=== PATIENT | female | born 1945 | race Caucasian/White ===

== ENCOUNTER 2016-09-28 12:35 | Inpatient (IN) | payer MEDICARE, BC ==
[~2016-09-28 12:35] MED LIST: ALEVE220 M2 PO; ASPIRIN81 MG PO; BISMUTH SU PO; BISOPROLOL FUMAR5 MG PO; CELEXA10 MG PO; CELEXA20 M1 PO; CITALOPRAM; COMPAZINE10 M PO; CRANBERRY250 M1 PO; DONEPEZIL HCL10 MG PO; DONEPEZIL HCL5 MG; GLUCOPHAGE500 M1 PO; GLUCOPHAGE500 MG; HUMULIN N100 U/ML; IBUPROFEN; IMODIUM A-D2 MG PO; LANTUS100 U/ML SC; LEVOTHYROXINE; LEVOTHYROXINE125 MCG; LEVOTHYROXINE125 MCG PO; NOVOLIN R 100 UNIT SC; NOVOLOG100 U/M SC; NOVOLOG100 U/M SQ; PRILOSEC20 MG PO; PYRIDIUM200 M1 PO; SIMVASTATIN10 MG PO; SINEMET 25-1001 TA1 PO; TYLENOL TA500 MG/TA1 PO; VITAMIN D 22000 UNIT PO; ZESTRIL2.5 M1 PO; [UNRECOGNIZED DRUG - OTHER]
[2016-09-28] MEDS ORDERED: SYNTHROID100 MC1 PO (13:38)
[2016-09-28] MEDS ORDERED: ZEBETA5 M2 PO (13:38)
[2016-09-28] MEDS ORDERED: PRINIVIL10 M1 PO (13:39)
[2016-09-28] MEDS ORDERED: ARICEPT10 M2 PO (13:39)
[2016-09-28] MEDS ORDERED: LANTUS SOL100 UNIT/1 SC (13:49)
[2016-09-28 13:56] LABS: URINE BILIRUBIN NEGATIVE (NEG); URINE BLOOD MODERATE (NEG); URINE COLOR YELLOW; URINE GLUCOSE (UA) NEGATIVE (NEG); URINE KETONE LARGE (NEG); URINE LEUKOCYTE ESTERASE POSITIVE (NEG); URINE NITRITE POSITIVE (NEG); URINE PROTEIN MODERATE (NEG); URINE SPECIFIC GRAVITY 1.025 (1.003-1.030)
[2016-09-28 13:57] LABS: URINE APPEARANCE HAZY
[2016-09-28 14:02] LABS: KETONE-BETA (WHOLE BLOOD) 2.3 mmol/L (0.0-0.6)
[2016-09-28 14:03] LABS: BASO % 0.5 % (0-2); EOS % 0.9 % (0-7); EOSINOPHIL ABSOLUTE COUNT 0.1 tho/cmm (0.0-0.7); HCT-HEMATOCRIT 42.8 % (34.0-49.0); IMMATURE GRANULOCYTES ABSOLUTE 0.03 tho/cmm (0-0.03); IMMATURE GRANULOCYTES PERCENT 0.4 % (0-0.3); LYMPH % 19.8 % (20-45); LYMPH ABSOLUTE COUNT 1.7 tho/cmm (0.8-4.5); MCH (MEAN CORPUSCULAR HGB) 27.1 pg (28.0-32.0); MCHC MEAN CORPUSCULAR HGB CONC 32.7 % (32.0-36.0); MCV (MEAN CELL VOLUME) 82.9 fl (82.0-96.0); MEAN PLATELET VOLUME 12.5 cmc (9.4-12.4); MONO % 5.3 % (0-12); MONOCYTE ABSOLUTE COUNT 0.5 tho/cmm (0.0-1.2); NEUTROPHIL ABSOLUTE COUNT 6.2 tho/cmm (1.6-8.0); NEUTROPHIL-AUTOMATED 6.2 tho/cmm (1.6-8.0); NEUTROPHILS % 73.1 % (40-80); PLATELET COUNT 162 tho/cmm (150-450); RED BLOOD COUNT 5.16 mil/cmm (4.00-5.20); WHITE BLOOD COUNT 8.5 tho/cmm (4.0-10.0)
[2016-09-28] MEDS ORDERED: OMEPRAZOLE20 M3 PO (14:09)
[2016-09-28] MEDS ORDERED: NOVOLOG FL100 UNIT/2 SC (14:09)
[2016-09-28] MEDS ORDERED: CELEXA20 M2 PO (14:10)
[2016-09-28] MEDS ORDERED: ASPIRIN EC81 MG PO (14:10)
[2016-09-28 14:11] LABS: URINE RBC 0-2 /[HPF] (0-5); URINE WBC 0-2 /[HPF] (0-5)
[2016-09-28] MEDS ORDERED: SINEMET 25-1001 EAC1 PO (14:11)
[2016-09-28 14:12] LABS: URINE MUCUS 1+
[2016-09-28 14:17] LABS: ALB/GLOB RATIO 0.8 (0.8-2.0); ALBUMIN 3.5 g/dl (3.5-5.0); ALKALINE PHOSPHATASE 85 U/L (33-138); ANION GAP 15 mmol/L (0-20); AST/SGOT 17 U/L (10-40); BILIRUBIN,TOTAL 0.8 mg/dl (0-1.5); BLOOD UREA NITROGEN 12 mg/dl (6-24); CALCIUM 8.6 mg/dl (8.5-10.5); CARBON DIOXIDE-VENOUS 26 mmol/L (22-32); CHLORIDE 97 mmol/l (96-110); CREATININE 0.95 mg/dl (0.50-1.10); GLUCOSE 199 mg/dL (70-110); LIPASE 68 U/L (73-393); POTASSIUM 4.3 mmol/L (3.7-5.1); SODIUM 134 mmol/L (135-145); eGFR VALUE FOR BLACK 69 mL/Min
[2016-09-28 14:21] LABS: ALT/SGPT <10 U/L (12-78); C-REACTIVE PROTEIN <0.3 mg/dl (0-0.9)
[2016-09-28 17:35] LABS: ABG CO2 ARTERIAL 24 mmol/L (21-27); ARTERIAL BLD GAS O2 SATURATION 97 % (95-98); ARTERIAL BLOOD GAS PCO2 36 mmHg (32-45); ARTERIAL PO2 93 mmHg (70-100); BICARBONATE 22 mmol/L (21-28); BLOOD GAS BASE EXCESS -1 mM/L (-/+3); PH 7.41 Units (7.35-7.45)
[2016-09-28 18:28] LABS: MAGNESIUM 1.8 mg/dl (1.3-2.6); PHOSPHOROUS 3.1 mg/dl (2.5-4.9)
[2016-09-28 18:30] LABS: TSH-THYROID STIMULATING HORM. 0.02 uIU/ml (0.40-3.80)
--- NOTE | 2016-09-28 21:18 | NUR ---
VN ROUNDING AND COMPLETED THE ADMISSION ASSESSMENT-SPOUSE KLAUDIA IN ROOM AND HELPED TO ANSWER THE QUESTIONS. PATIENT SON IS A MEDICAL ONCOLOGY PHYSICIAN AND THEY REQUESTED THAT A MEDICAL ONCOLOGY PHYSICIAN SEE THEM TOMORROW SO I CALLED THE [employer] AND THEY WILL PUT ON THE MEDICAL ONCOLOGY PHYSICIAN LIST TO SEE TOMORROW.
[2016-09-29 10:27] LABS: CALCIUM 8.3 mg/dl (8.5-10.5)
[2016-09-30 05:56] LABS: ANION GAP 11 mmol/L (0-20); BLOOD UREA NITROGEN 5 mg/dl (6-24); CALCIUM 7.7 mg/dl (8.5-10.5); CARBON DIOXIDE-VENOUS 27 mmol/L (22-32); CHLORIDE 104 mmol/l (96-110); CREATININE 0.78 mg/dl (0.50-1.10); GLUCOSE 106 mg/dL (70-110); SODIUM 138 mmol/L (135-145); eGFR VALUE FOR BLACK 88 mL/Min
[2016-10-01] MEDS ORDERED: TYLENOL EXTRA500 M1 PO (15:18)
[2016-10-01] MEDS ORDERED: ZOFRAN ODT4 MG PO (15:20)
[2016-10-01] MEDS ORDERED: NOVOLOG FL100 UNIT/2 SC (15:23)
[2016-10-01] MEDS ORDERED: NOVOLOG100 UNITS/ SC (15:27)
[2016-10-01] MEDS ORDERED: GLUCAGON HCL1 MG IM (15:29)
[2016-12-16] MEDS ORDERED: ARICEPT10 M2 PO (11:58)
[2016-12-16] MEDS ORDERED: CITALOPRAM HBR10 M1 PO (11:59)
== END 2016-10-01 15:45 | DRG 642 ==
LOC: EDMED 12:35 → EMR2 16:02 → 5WD 17:27
PROVIDERS: Emergency Medicine; ADMIT Internal Medicine
DX: E88.89 Other specified metabolic disorders (principal); E87.2 Acidosis; G20 Parkinson's disease; E11.9 Type 2 diabetes mellitus without complications; E86.1 Hypovolemia; I10 Essential (primary) hypertension; R10.9 Unspecified abdominal pain; E05.90 Thyrotoxicosis, unspecified without thyrotoxic crisis or storm; Z79.82 Long term (current) use of aspirin; Z79.4 Long term (current) use of insulin; Z88.2 Allergy status to sulfonamides; R11.2 Nausea with vomiting, unspecified; T44.1X5A Adverse effect of other parasympathomimetics [cholinergics], initial encounter; E86.0 Dehydration
CPT/HCPCS: J1650; J1815; J2405; J3475; J7030; Q9967

== ENCOUNTER 2016-12-20 06:01 | Day surgery (SDC) | payer MEDICARE, BC ==
[~2016-12-20 06:01] MED LIST changes: +ARICEPT10 M2 PO; +ASPIRIN EC81 MG PO; +CELEXA20 M2 PO; +CITALOPRAM HBR10 M1 PO; +GLUCAGON HCL1 MG IM; +LANTUS SOL100 UNIT/1 SC; +NOVOLOG FL100 UNIT/2 SC; +NOVOLOG100 UNITS/ SC; +OMEPRAZOLE20 M3 PO; +PRINIVIL10 M1 PO; +SINEMET 25-1001 EAC1 PO; +SYNTHROID100 MC1 PO; +TYLENOL EXTRA500 M1 PO; +ZEBETA5 M2 PO; +ZOFRAN ODT4 MG PO
[2016-12-20 07:39] LABS: BASO % 0.3 % (0-2); EOS % 4.8 % (0-7); EOSINOPHIL ABSOLUTE COUNT 0.3 tho/cmm (0.0-0.7); IMMATURE GRANULOCYTES ABSOLUTE 0.02 tho/cmm (0-0.03); IMMATURE GRANULOCYTES PERCENT 0.3 % (0-0.3); LYMPH % 30.9 % (20-45); LYMPH ABSOLUTE COUNT 1.9 tho/cmm (0.8-4.5); MCH (MEAN CORPUSCULAR HGB) 27.1 pg (28.0-32.0); MCHC MEAN CORPUSCULAR HGB CONC 32.4 % (32.0-36.0); MCV (MEAN CELL VOLUME) 83.7 fl (82.0-96.0); MEAN PLATELET VOLUME 11.3 cmc (9.4-12.4); MONO % 6.5 % (0-12); MONOCYTE ABSOLUTE COUNT 0.4 tho/cmm (0.0-1.2); NEUTROPHIL ABSOLUTE COUNT 3.4 tho/cmm (1.6-8.0); NEUTROPHIL-AUTOMATED 3.4 tho/cmm (1.6-8.0); NEUTROPHILS % 57.2 % (40-80); PLATELET COUNT 163 tho/cmm (150-450); RED BLOOD COUNT 4.06 mil/cmm (4.00-5.20)
[2016-12-20 07:50] LABS: ANION GAP 13 mmol/L (0-20); BLOOD UREA NITROGEN 18 mg/dl (6-24); CALCIUM 8.4 mg/dl (8.5-10.5); CARBON DIOXIDE-VENOUS 26 mmol/L (22-32); CHLORIDE 105 mmol/l (96-110); CREATININE 0.94 mg/dl (0.50-1.10); GLUCOSE 274 mg/dL (70-110); POTASSIUM 4.5 mmol/L (3.7-5.1); SODIUM 139 mmol/L (135-145); eGFR VALUE FOR BLACK 70 mL/Min
== END 2016-12-20 09:40 ==
LOC: ENDOS 06:01 → SHSA 06:04 → ENDOS 07:45
PROVIDERS: Anesthesiology
PROC: 0D758ZZ Dilation of Esophagus, Via Natural or Artificial Opening Endoscopic (ICD-10-PCS; principal; 2016-12-20)
DX: K22.2 Esophageal obstruction (principal); K44.9 Diaphragmatic hernia without obstruction or gangrene; I10 Essential (primary) hypertension; G20 Parkinson's disease; G25.0 Essential tremor; M16.10 Unilateral primary osteoarthritis, unspecified hip; M17.9 Osteoarthritis of knee, unspecified; E11.40 Type 2 diabetes mellitus with diabetic neuropathy, unspecified; E11.319 Type 2 diabetes mellitus with unspecified diabetic retinopathy without macular edema; M51.36 Other intervertebral disc degeneration, lumbar region; M48.06 Spinal stenosis, lumbar region; E03.9 Hypothyroidism, unspecified; F41.9 Anxiety disorder, unspecified; F32.9 Major depressive disorder, single episode, unspecified; I27.2 Other secondary pulmonary hypertension; K21.9 Gastro-esophageal reflux disease without esophagitis; H91.90 Unspecified hearing loss, unspecified ear; F03.90 Unspecified dementia, unspecified severity, without behavioral disturbance, psychotic disturbance, mood disturbance, and anxiety; E78.5 Hyperlipidemia, unspecified; Z79.4 Long term (current) use of insulin; Z79.82 Long term (current) use of aspirin; Z79.899 Other long term (current) drug therapy; Z87.442 Personal history of urinary calculi; Z97.4 Presence of external hearing-aid; Z90.49 Acquired absence of other specified parts of digestive tract; Z98.890 Other specified postprocedural states